=== PATIENT | male | born 1965 | race Caucasian/White ===

== ENCOUNTER 2017-08-24 00:36 | Emergency (ER) | payer SELFPAY ==
--- NOTE | 2017-08-24 00:44 | ED.PDOC ---
History of Present Illness - General Chief Complaint: Neuro Symptoms/Deficits Stated Complaint: Altered mental status Time Seen by Provider: 08/24/17 00:38 Source: RN notes reviewed, Vital Signs reviewed, EMS Exam Limitations: clinical condition - History of Present Illness Initial Comments: Patient arrives at ER via EMS with altered mental status. Per EMS family feels this is related to alcohol use and that he is in DT's. told EMS that he has done this numerous times over the past several years. Family reports he had a seizure. He was standing at the oven cooking and just fell backwards. Per EMS he stopped drinking 2 days ago. EMS gave Versed and Narcan w/o change in condition. Movement seems purposeful to EMS because he continuously reaches up and moves the nasal canula. Story is questionable as there is no obvious posterior head injury but does have a lip laceration. Timing/Duration: unknown Severity: severe Improving Factors: nothing Worsening Factors: nothing Allergies/Adverse Reactions: Allergies UNOBTAINABLE Allergy (Verified 08/24/17 01:45) Home Medications: Ambulatory Orders Unobtainable [Unobtainable] 08/24/17 Review of Systems - Review of Systems Unable to Obtain Due To: clinical condition - Not responding to questions. Family Medical History - Family History Mother Family History: Unknown Physical Exam - Physical Exam General Appearance: Agitated - keeps reaching up to rub his face and move nasal canula, Unkempt Eye Exam: bilateral normal - PERRL ENT Exam: other - Superficial laceration of middle of lower lip Neck: other - in C-collar due to fall and mental status. Respiratory: lungs clear, normal breath sounds, no respiratory distress, no accessory muscle use Cardiovascular/Chest: normal peripheral pulses, regular rate, rhythm, no edema, no gallop, no murmur Peripheral Pulses: dorsalis pedis,right: 2+, dorsalis pedis,left: 2+ Gastrointestinal/Abdominal: normal bowel sounds, non tender, soft, no organomegaly, no pulsatile mass Extremities Exam: no evidence of injury Mental Status: disoriented x 3, unresponsive - to questioning but did follow command to relax arms during exam engineer steam Exam: other - Unresponsive, unable to evaluate Motor/Sensory: other - Moving arms and resisting restraint, sitting up in bed, moving legs w/o difficulty Skin Exam: normal color, warm/dry Comments: Pants soaked with urine. GCS: 10 Progress - Progress Progress: 08/24/17 01:21 Labs show Sodium of 115. Etoh is negative. Drug screen is + for Benzo but was given Versed by EMS. Will start hypertonic saline. 08/24/17 01:35 Discussed with hospitalist who recommended transfer to [facility]. 08/24/17 01:[address] scans due to patient not cooperating and currently in 4 point restraints and a chest restraint. Dr. Olvera @ [facility] said to just leave him in his c-collar and send him on. - Results/Orders Results/Orders: 08/24/17 00:38 Cervical Spine [CT] Stat Head [CT] Stat 08/24/17 00:39 Restraint:Non-Violent,Initial ONCE 08/24/17 01:21 Sod Chl 3% *Hypertonic* 500Ml [HYPERTONIC Sodium Chloride 3% 500ml] 500 ml IVS ONCE 08/24/17 01:51 Catheter:Lacy QSHIFT Laboratory Results - last 24 hr 08/24/17 08/24/17 08/24/17 00:59 00:59 00:59 WBC 12.8 H RBC 4.65 L Hgb 15.3 Hct 42.9 MCV 92.3 MCH 32.9 H MCHC 35.6 RDW 13.2 Plt Count 208 MPV 7.8 Absolute Neuts (auto) 10.50 H Absolute Lymphs (auto) 1.30 Absolute Monos (auto) 1.00 H Absolute Eos (auto) 0.00 Absolute Basos (auto) 0.00 Neutrophils % 81.7 H Lymphocytes % 10.2 L Monocytes % 7.6 Eosinophils % 0.3 L Basophils % 0.2 Sodium 115 L* Potassium 3.9 Chloride 83 L Carbon Dioxide 21 Anion Gap 14.9 BUN 7 Creatinine 0.63 BUN/Creatinine Ratio 11.1 Random Glucose 140 H Serum Osmolality 231.3 L* Calcium 8.5 Total Bilirubin 0.8 AST 30 ALT 15 Alkaline Phosphatase 68 Serum Total Protein 7.6 Albumin 4.6 Globulin 3.0 Albumin/Globulin Ratio 1.5 Urine Opiates Screen Urine Barbiturates Ur Phencyclidine Scrn U Amphetamin/Meth Scrn U Benzodiazepines Scrn U Cocaine Metab Screen U Cannabinoids Screen Ethyl Alcohol < 5.40 08/24/17 00:59 WBC RBC Hgb Hct MCV MCH MCHC RDW Plt Count MPV Absolute Neuts (auto) Absolute Lymphs (auto) Absolute Monos (auto) Absolute Eos (auto) Absolute Basos (auto) Neutrophils % Lymphocytes % Monocytes % Eosinophils % Basophils % Sodium Potassium Chloride Carbon Dioxide Anion Gap BUN Creatinine BUN/Creatinine Ratio Random Glucose Serum Osmolality Calcium Total Bilirubin AST ALT Alkaline Phosphatase Serum Total Protein Albumin Globulin Albumin/Globulin Ratio Urine Opiates Screen Negative Urine Barbiturates Negative Ur Phencyclidine Scrn Negative U Amphetamin/Meth Scrn Negative U Benzodiazepines Scrn Positive H U Cocaine Metab Screen Negative U Cannabinoids Screen Negative Ethyl Alcohol Departure - Departure Clinical Impression: Acute hyponatremia Altered mental status Qualifiers: Altered mental status type: delirium Qualified Code(s): R41.0 - Disorientation , unspecified Time of Disposition: : Disposition: Transfer to Hospital Condition: Serious Departure Forms: ED Discharge - Pt. Copy, Patient Portal Self Enrollment Home Medications: Ambulatory Orders Unobtainable [Unobtainable] 08/24/17 Transfer to Outside Facility - Transfer Information Accepting Provider:: Dr. Olvera Accepting Facility: [facility] Reason for Transfer: specialized care not available
[2017-08-24] MEDS ORDERED: SOD CHL 3% *HYPERTONIC* 500ML 500 ML IVS ONE (01:21)
[2017-08-24 02:33] VITALS: BP 129/72; TEMP 97.2; O2SAT 97
== END 2017-08-24 02:55 | disposition short-term general hospital (02) ==
LOC: ER 00:36
DX: E87.1 Hypo-osmolality and hyponatremia (principal); R41.82 Altered mental status, unspecified; S01.501A Unspecified open wound of lip, initial encounter; W18.39XA Other fall on same level, initial encounter; Y92.000 Kitchen of unspecified non-institutional (private) residence as the place of occurrence of the external cause
CPT/HCPCS: 36415; 72125; 80053; 80307; 80320; 85025; J7799

== ENCOUNTER 2018-07-29 19:12 | Emergency (ER) | payer SELFPAY ==
[2018-07-29 19:25] VITALS: BP 138/96; TEMP 97.8; O2SAT 99
--- NOTE | 2018-07-29 19:35 | ED.PDOC ---
History of Present Illness - General Chief Complaint: Eye Problems Stated Complaint: visual changes Time Seen by Provider: 07/29/18 19:24 Source: patient Exam Limitations: no limitations - History of Present Illness Initial Comments: the patient is a 52-year-old male presenting to the emergency room secondary to vision changes. He lost vision in his right eye about 3 or 4 months ago. He feels like he is having some increased glare in his left eye. There was no pain with his vision loss in the right eye. He is not a diabetic but does report that he has some hypertension that he is no longer taking medications for. No known history of trauma to the right eye. Examination of the right eye appears to show a completely opacified cataract. I'm unable to see anything behind this. Pupil is reactive. Visual rasmussen appear to be grossly preserved. Red reflexes present throughout on the left eye. Pupil is symmetrical and reactive as well. No proptosis. No palpable increased pressure however we do not have a functioning Antonio-Pen. The patient is not having any pain. Vision change in the left eye has been going on for couple of weeks. The patient has had a history of significant hyponatremia in the past. I have offered the patient further workup including laboratory testing and possibly a head CT depending on what lab work showed for further workup. He has deferred this at this time. He is not having any symptoms elsewhere. He is alert and oriented pleasant and cooperative. he has deferred acuity testing of the left eye at this point. He really can also only make out vague shapes and light and dark with the right eye. Timing/Duration: unsure Severity: moderate Improving Factors: nothing Worsening Factors: nothing Associated Symptoms: denies symptoms Allergies/Adverse Reactions: Allergies UNOBTAINABLE Allergy (Verified 08/24/17 01:45) Home Medications: Ambulatory Orders Unobtainable [Unobtainable] 08/24/17 Review of Systems - Review of Systems Constitutional: States: no symptoms reported EENTM: States: see HPI Respiratory: States: no symptoms reported Cardiology: States: no symptoms reported Gastrointestinal/Abdominal: States: no symptoms reported Genitourinary: States: no symptoms reported Musculoskeletal: States: no symptoms reported Skin: States: no symptoms reported Neurological: States: no symptoms reported, see HPI Endocrine: States: no symptoms reported All other Systems: No Change from Baseline Past Medical History (General) - Patient Medical History Hx Seizures: - unknown Hx Stroke: - unknown Hx Dementia: - unknown Hx Asthma: - unknown Hx of COPD: - unknown Hx Cardiac Disorders: - unknown Hx Congestive Heart Failure: - unknown Hx Pacemaker: - unknown Hx Hypertension: Yes Hx Thyroid Disease: - unknown Hx Diabetes: - unknown Hx Gastroesophageal Reflux: - unknown Hx Renal Disease: - unknown Hx Cancer: - unknown Hx of HIV: - unknown Hx Hepatitis C: - unknown Hx MRSA: - unknown Surgical History: no surgical history - Vaccination History Hx Tetanus, Diphtheria Vaccination: No Hx Influenza Vaccination: No Hx Pneumococcal Vaccination: No - Social History Hx Tobacco Use: Yes Hx Alcohol Use: Yes Hx Substance Use: - unknown Hx Substance Use Treatment: - unknown Hx Depression: - unknown - Triage Comment ED Triage Comment: Pt reports having some visual changes. PT states he is having some blindness in his rt eye and blurriness to his left eye. this all started about 3months ago. Pt has not been seen by anyone for this. Pt stated he came because he made him come. Family Medical History - Family History Mother Family History: Unknown Physical Exam - Physical Exam General Appearance: Alert, Comfortable, No apparent distress Eye Exam: bilateral other - ee history of present illness Ears, Nose, Throat: hearing grossly normal, normal pharynx - poor dentition Neck: full range of motion, supple Respiratory: lungs clear, normal breath sounds, no respiratory distress, no accessory muscle use Cardiovascular/Chest: normal peripheral pulses, regular rate, rhythm, no edema Peripheral Pulses: radial,right: 2+, radial,left: 2+, dorsalis pedis,right: 2+, dorsalis pedis,left: 2+ Gastrointestinal/Abdominal: non tender, soft Rectal Exam: deferred Back Exam: normal inspection, no CVA tenderness, no vertebral tenderness Extremity: normal range of motion, non-tender, normal inspection, no pedal edema , normal capillary refill Neurologic: no motor/sensory deficits - with the exception of the vision changes above, alert, normal mood/affect, oriented x 3 Skin Exam: normal color Comments: Vital Signs - 24 hr 07/29/18 19:21 Temperature 97.8 F Pulse Rate [ 84 left] Respiratory 18 Rate Blood Pressure 138/96 [left] O2 Sat by Pulse 99 Oximetry Progress - Progress Progress: 07/29/18 19:35 the patient is a 52-year-old male presenting with chronic vision loss of his right eye that I believe is due to a completely opacified cataract and mild blurry vision of the left eye for which I do not have a source at this time. The patient has deferred further workup at this time as he wants to get back to his that is in the hospital. I do recommend that patient get set up with an coach cleaner for further evaluation. I do not see any obvious emergency at this point, however this is certainly an urgency. I also recommend that he get a blood draw in the near future with his primary care doctor as he has had a history of significant hyponatremia. He has deferred that work up here as well at this time. ER warnings were given for any acute changes. Departure - Departure Clinical Impression: Changes in vision Disposition: Discharge to Home or Self Care Condition: Fair Departure Forms: ED Discharge - Pt. Copy, Patient Portal Self Enrollment Diet: regular diet Activity: increase activity as tolerated Home Medications: Ambulatory Orders Unobtainable [Unobtainable] 08/24/17 Additional Instructions: the patient is a 52-year-old male presenting with chronic vision loss of his right eye that I believe is due to a completely opacified cataract and mild blurry vision of the left eye for which I do not have a source at this time. The patient has deferred further workup at this time as he wants to get back to his that is in the hospital. I do recommend that patient get set up with an coach cleaner for further evaluation. I do not see any obvious emergency at this point, however this is certainly an urgency. I also recommend that he get a blood draw in the near future with his primary care doctor as he has had a history of significant hyponatremia. He has deferred that work up here as well at this time. ER warnings were given for any acute changes.
== END 2018-07-29 19:44 | disposition home or self-care (01) ==
LOC: ER 19:12
DX: H53.9 Unspecified visual disturbance (principal); Z87.891 Personal history of nicotine dependence

== ENCOUNTER 2018-11-24 16:43 | Emergency (ER) | payer SELFPAY ==
[2018-11-24] MEDS ORDERED: SODIUM CHLORIDE 0.9% (FLUSH) 10 ML SYG IV PRN (17:27)
[2018-11-24] MEDS ORDERED: KETOROLAC TROMETHAMINE INJ 30 MG/ML VIAL IV ONE (17:27)
--- NOTE | 2018-11-24 17:33 | ED.PDOC ---
History of Present Illness - General Source: patient Exam Limitations: no limitations - History of Present Illness Initial Comments: PT PRESENTS WITH COMPLAINT OF LLE PAIN X 3 WEEKS. PT REPORTS PAIN IS CONSTANT BUT WORSE WHEN AMBULATING. PT STATES THAT PAIN HAS PROGRESSIVELY GOTTEN WORSE OVER THE PAST 3 WEEKS. Timing/Duration: getting worse Severity: moderate, severe Improving Factors: immobilization, rest Worsening Factors: movement Associated Symptoms: denies symptoms <ElvisSrikatnhrocky H - Last Filed: 11/24/18 17:31> <Eric Che - Last Filed: 11/24/18 20:53> - General Chief Complaint: General Stated Complaint: left leg pain,low back pain Time Seen by Provider: 11/24/18 17:26 - History of Present Illness Allergies/Adverse Reactions: Allergies Lorazepam [From Ativan] Allergy (Verified 11/24/18 16:59) Home Medications: Ambulatory Orders NK 11/24/18 Review of Systems - Review of Systems Constitutional: Denies: chills, fever EENTM: Denies: nose congestion, throat pain Respiratory: Denies: cough, short of breath Cardiology: Denies: chest pain, palpitations, syncope Gastrointestinal/Abdominal: Denies: nausea, vomiting Genitourinary: Denies: dysuria, frequency Musculoskeletal: States: see HPI, muscle pain. Denies: joint pain, joint swelling Skin: Denies: lesions, rash Neurological: Denies: numbness, paresthesia Endocrine: States: no symptoms reported Hematologic/Lymphatic: States: no symptoms reported <ElvisSrikanthrocky H - Last Filed: 11/24/18 17:31> Past Medical History (General) - Patient Medical History Hx Seizures: - unknown Hx Stroke: - unknown Hx Dementia: - unknown Hx Asthma: - unknown Hx of COPD: - unknown Hx Cardiac Disorders: - unknown Hx Congestive Heart Failure: No Hx Pacemaker: - unknown Hx Hypertension: Yes Hx Thyroid Disease: - unknown Hx Diabetes: No Hx Gastroesophageal Reflux: - unknown Hx Renal Disease: - unknown Hx Cancer: - unknown Hx of HIV: - unknown Hx Hepatitis C: - unknown Hx MRSA: - unknown Surgical History: no surgical history - Vaccination History Hx Tetanus, Diphtheria Vaccination: No Hx Influenza Vaccination: No Hx Pneumococcal Vaccination: No - Social History Hx Tobacco Use: Yes Hx Alcohol Use: Yes Hx Substance Use: - unknown Hx Substance Use Treatment: - unknown Hx Depression: - unknown <Kvng Leal - Last Filed: 11/24/18 17:31> Family Medical History - Family History Mother Family History: Unknown <Kvng Leal - Last Filed: 11/24/18 17:31> Physical Exam - Physical Exam General Appearance: Alert, No apparent distress, Well Developed, Well Groomed, Well Hydrated Ears, Nose, Throat: hearing grossly normal Neck: normal inspection Respiratory: normal breath sounds, no respiratory distress, no accessory muscle use Cardiovascular/Chest: regular rate, rhythm, no murmur Peripheral Pulses: dorsalis pedis,right: 2+, dorsalis pedis,left: 2+, posterior tibialis,right: 2+, posterior tibialis,left: 2+ Extremity: no pedal edema, calf tenderness - LEFT, swelling - MILD Neurologic: alert, normal mood/affect, oriented x 3 Skin Exam: normal color, warm/dry <Kvng Leal - Last Filed: 11/24/18 17:31> - Physical Exam Gastrointestinal/Abdominal: non tender, soft, no organomegaly Back Exam: normal inspection, no CVA tenderness, no vertebral tenderness <Eric Che R - Last Filed: 11/24/18 20:53> Progress - Progress Progress: 11/24/18 19:38 Vital Signs - 8 hr 11/24/18 11/24/18 11/24/18 16:51 17:51 19:05 Temperature 99.2 F Pulse Rate [ 91 H 65 77 Left Brachial] Respiratory 16 18 18 Rate Blood Pressure 155/102 144/94 137/88 [Left Arm] O2 Sat by Pulse 99 99 98 Oximetry 11/24/18 20:43 discuss possible admission since no resources to get his medicines but Claritza Radford-ANP/Hospitalist brought 30 day supply for Xarelto and was given instruction which was clearly written on the package insert and patient understand those instructions and precautioned for any abnormal bleeding diathesis.He will be treated outpatient and was advised to start medications tonight and to follow up with [facility] in am 28 201811/24/18 20:48 - Results/Orders Results/Orders: 11/24/18 17:27 Sodium Chloride 0.9% (Flush) [Saline Flush Syringe] 10 ml IV PRN PRN 11/24/18 19:19 PROTHROMBIN TIME Stat PTT [PARTIAL THROMBOPLASTIN TIME] Stat Laboratory Results - last 24 hr 11/24/18 11/24/18 11/24/18 17:52 17:52 17:52 WBC 6.2 RBC 4.57 L Hgb 14.5 Hct 42.7 MCV 93.4 MCH 31.8 H MCHC 34.0 RDW 14.7 H Plt Count 306 MPV 7.5 Absolute Neuts (auto) 3.80 Absolute Lymphs (auto) 1.60 Absolute Monos (auto) 0.60 Absolute Eos (auto) 0.20 Absolute Basos (auto) 0.10 Neutrophils % 61.3 Lymphocytes % 25.0 Monocytes % 9.5 H Eosinophils % 2.9 Basophils % 1.3 PT 10.0 INR 1.00 PTT (SP) 25.6 Sodium 133 L Potassium 4.2 Chloride 98 L Carbon Dioxide 24 Anion Gap 15.2 BUN 8 Creatinine 0.74 BUN/Creatinine Ratio 10.8 Random Glucose 89 Serum Osmolality 264.2 L Calcium 9.3 - EKG/XRAY/CT XRAY: left leg doppler-dvt left lower extremity common femoral vein to popliteal vein <Eric Che R - Last Filed: 11/24/18 20:53> Departure <Kvng Leal H - Last Filed: 11/24/18 17:31> - Departure Time of Disposition: 20:50 <Eric Che R - Last Filed: 11/24/18 20:53> - Departure Clinical Impression: Left femoral vein DVT Qualifiers: Chronicity: acute Qualified Code(s): I82.412 - Acute embolism and thrombosis of left femoral vein Disposition: Discharge to Home or Self Care Condition: Fair Departure Forms: ED Discharge - Pt. Copy, Patient Portal Self Enrollment Instructions: Deep Vein Thrombosis (Blood Clots in the Legs), Deep Vein Thrombosis (Blood Clots in the Legs) (DC), How to Prevent Blood Clots Home Medications: Ambulatory Orders NK 11/24/18 Additional Instructions: Take Xarelto 15 mg BID with food as per package insert instruction for 3 weeks then 20 mg daily therafter;Follow up with [facility] [phone] 25 November 2018;return to ER as needed
[2018-11-24 19:06] VITALS: O2SAT 98
--- NOTE | 2018-11-24 19:18 | US ---
EXAM DESCRIPTION: Venous,Lower Extremity LT CLINICAL HISTORY: LLE PAIN AND SWELLING COMPARISON: None. TECHNIQUE: Grayscale, color Doppler, and spectral Doppler imaging of the left lower extremity venous system. FINDINGS: Echogenic thrombus identified in the left common femoral, superficial femoral, popliteal, and peroneal veins. No definite thrombus identified in the greater saphenous vein. IMPRESSION: 1. Extensive acute DVT involving the left lower extremity from the common femoral vein to the popliteal vein as well as superficial venous thrombosis in the peroneal vein. Thrombus in the superficial femoral and popliteal veins appears occlusive. Urgent finding reported to Dr. Finch at 11/24/2018 7:14 PM CDT Electronically signed by: Kit Harrison 11/24/2018 7:15 PM CDT
[2018-11-24 21:13] VITALS: BP 123/86; TEMP 98.1
== END 2018-11-24 21:15 | disposition home or self-care (01) ==
LOC: ER 16:43
DX: I82.412 Acute embolism and thrombosis of left femoral vein (principal); I10 Essential (primary) hypertension; Z87.891 Personal history of nicotine dependence; Z88.8 Allergy status to other drugs, medicaments and biological substances
CPT/HCPCS: 36415; 80048; 85025; 85610; 85730; 93971; J1885